=== PATIENT | male | born 1975 | race Hispanic/Latino ===

== ENCOUNTER → 2017-08-25 | Outpatient (CLI) | payer MEDICARE ==
[~2017-08-25] MED LIST: AMLO10TA2 PO; AMOX-429 PO; CARV12.511 PO; GLIP10TA9 PO; LOVA20TA3 PO; PIOG45TA17 PO
[2017-08-25 14:16] VITALS: BP 141/94
== END | disposition home or self-care (01) ==
LOC: WHH 10:00
PROVIDERS: ATTEND Podiatrist Foot & Ankle Surgery
DX: E11.621 Type 2 diabetes mellitus with foot ulcer (principal); L97.521 Non-pressure chronic ulcer of other part of left foot limited to breakdown of skin; E11.22 Type 2 diabetes mellitus with diabetic chronic kidney disease; I12.9 Hypertensive chronic kidney disease with stage 1 through stage 4 chronic kidney disease, or unspecified chronic kidney disease; N18.4 Chronic kidney disease, stage 4 (severe); E66.01 Morbid (severe) obesity due to excess calories; E11.69 Type 2 diabetes mellitus with other specified complication; M86.8X7 Other osteomyelitis, ankle and foot; E11.42 Type 2 diabetes mellitus with diabetic polyneuropathy; E11.21 Type 2 diabetes mellitus with diabetic nephropathy; E11.52 Type 2 diabetes mellitus with diabetic peripheral angiopathy with gangrene; Z79.4 Long term (current) use of insulin; Z99.2 Dependence on renal dialysis; Z89.511 Acquired absence of right leg below knee
CPT/HCPCS: 97597; A6196; A6207

== ENCOUNTER 2019-12-17 15:41 | Inpatient (IN) | payer MEDICARE ==
[~2019-12-17] VITALS: Ht 162.6 cm; Wt 114.3 kg
[~2019-12-17 15:41] MED LIST changes: +AMLO-258 PO; -AMLO10TA2 PO; -AMOX-429 PO; +FURO40TA5 PO; -PIOG45TA17 PO; +PIOG45TA64 PO
[2019-12-17] MEDS ORDERED: NEOMY SULF/BACITRA/POLYMYXIN B 1 EACH PACKET TP ONE (16:13)
[2019-12-17 16:18] LABS: BASOPHILS % (AUTO) 0.2 % (0.0-5.0); EOSINOPHILS % (AUTO) 2.1 % (0.0-8.0); HEMATOCRIT 25.7 % (42-54); MEAN CORPUSCULAR HEMOGLOBIN 29.2 pg (27.0-33.0); MEAN CORPUSCULAR HGB CONC 32.3 g/dL (32.0-36.0); MEAN CORPUSCULAR VOLUME 90.5 fL (79-99); MONOCYTES % (AUTO) 5.6 % (3.0-13.0); NEUTROPHILS % (AUTO) 84.5 % (40.0-77.0); PLATELET COUNT (AUTO) 330 K/uL (130-400); RED BLOOD CELL COUNT(AUTO) 2.84 MIL/uL (4.50-6.20); RED CELL DISTRIBUTION WIDTH 13.6 % (11.0-15.5); WHITE BLOOD COUNT (AUTO) 12.8 K/uL (4.8-10.8)
[2019-12-17 16:33] LABS: RAPID GROUP A STREP NEGATIVE (NEGATIVE)
[2019-12-17 16:36] LABS: ALANINE AMINOTRANSFERASE 18 U/L (12-78); ASPARTATE AMINOTRANSFERASE 17 U/L (10-37); BILIRUBIN,TOTAL 0.2 mg/dL (0.2-1.0); CHLORIDE 98 mmol/L (101-111); CREATINE KINASE, TOTAL 301 U/L (21-232); GLOMERULAR FILTR. RATE CALC 3 mL/min (>60); GLUCOSE,RANDOM 105 mg/dL (70-105); POTASSIUM 3.7 mmol/L (3.5-5.1); SODIUM SERUM 130 mmol/L (136-145); TOTAL PROTEIN, SERUM 7.9 g/dL (6.0-8.3)
[2019-12-17 16:44] LABS: CARBON DIOXIDE 7 mmol/L (21-32); CREATININE 16.3 mg/dL (0.5-1.5); UREA NITROGEN, BLOOD 142 mg/dL (7-18)
[2019-12-17 17:20] LABS: ABG BASE EXCESS -23.7 mmol/L (-2.0-3.0); ABG HCO3 5.5 mmol/L (21.0-28.0); ABG PCO2 21 mmHg (35-48)
[2019-12-17 19:12] LABS: ABG HCO3 5.2 mmol/L (21.0-28.0); ABG OXYGEN SATURATION 97.1 % (95.0-99.0); ABG PCO2 20 mmHg (35-48)
[2019-12-17] MEDS: Vitamin B Complex/Vit C/Folic Acid PO SCH (20:20)
[2019-12-17] MEDS ORDERED: GLUCAGON 1MG KIT 1 MG ML IM PRN (20:30)
[2019-12-17] MEDS: SODIUM BICARB 8.4% 50ML SYRING 150 MEQ in DEXTROSE 5%-WATER 1,000 ML IV SCH (20:30)
[2019-12-17] MEDS ORDERED: ACETAMINOPHEN 325 MG TAB PO PRN (20:30)
[2019-12-17] MEDS ORDERED: THIAMINE HCL 100 MG/ML 2ML VIAL ONE (20:50)
[2019-12-17 23:45] VITALS: BP 115/52
--- NOTE | 2019-12-17 23:53 | NUR ---
Admitted from ER. Awake, alert, and oriented. No c/o pain, sob. Oriented to room, call light, bed controls etc. D5W 1 liter/w 3 amps sodium bicarb infusing at 75 mls/hr into patent left wrist 20g IV. Initial assessment done. Call light and needed items placed readily at hand. Encouraged to call prn.
[2019-12-18] VITALS (36 sets, daily range): BP systolic 90–164; BP diastolic 38–76
[2019-12-18] MEDS ORDERED: METF-446 PO (02:34)
[2019-12-18] MEDS ORDERED: ZOLP10TA2 PO (02:34)
[2019-12-18] MEDS ORDERED: ONDA4TAB10 PO (02:34)
[2019-12-18] MEDS ORDERED: CHOL500051 PO (02:34)
[2019-12-18] MEDS ORDERED: LISI1TAB29 PO (02:34)
[2019-12-18] MEDS ORDERED: DEXTROSE 50%-WATER 25 GM/50 ML VIAL ONE (05:38)
[2019-12-18] MEDS: DEXTROSE 50%-WATER 50 ML DISP.SYRIN IV PRN ×2 (05:43→12:14)
[2019-12-18] MEDS: PANTOPRAZOLE SODIUM 40 MG TABLET.DR PO SCH (08:49)
[2019-12-18] MEDS: THIAMINE HCL 100 MG/ML 2ML VIAL IV SCH (08:49)
[2019-12-18] MEDS: Vitamin B Complex/Vit C/Folic Acid PO SCH (08:49)
[2019-12-18 09:34] LABS: HEMATOCRIT 24.3 % (42-54); MEAN CORPUSCULAR HEMOGLOBIN 28.6 pg (27.0-33.0); MEAN CORPUSCULAR HGB CONC 32.1 g/dL (32.0-36.0); PLATELET COUNT (AUTO) 319 K/uL (130-400); RED BLOOD CELL COUNT(AUTO) 2.73 MIL/uL (4.50-6.20); RED CELL DISTRIBUTION WIDTH 13.6 % (11.0-15.5)
[2019-12-18 10:03] LABS: EOSINOPHILS % (MANUAL) 1 % (1-6); LYMPHOCYTES % (MANUAL) 9 % (22-44); MAN.DIFF COMMENT-IMPRESSION MANUAL DIFFERENTIAL; MONOCYTES % (MANUAL) 5 % (2-9); PLATELET MORPHOLOGY COMMENT ADEQUATE; SEGMENTED NEUTROPHILS % 85 % (40-70)
[2019-12-18 10:10] LABS: INR 1.14 (0.85-1.15); PARTIAL THROMBOPLASTIN TIME 34.3 SEC (26.3-35.5); PROTHROMBIN TIME 12.2 SEC (9.6-11.6)
[2019-12-18 10:18] LABS: CHLORIDE 99 mmol/L (101-111); GLOMERULAR FILTR. RATE CALC 3 mL/min (>60); GLUCOSE,RANDOM 84 mg/dL (70-105); PHOSPHORUS 13.5 mg/dL (2.5-4.9); POTASSIUM 3.6 mmol/L (3.5-5.1); SODIUM SERUM 132 mmol/L (136-145)
[2019-12-18 10:24] LABS: CARBON DIOXIDE 7 mmol/L (21-32); CREATININE 16.6 mg/dL (0.5-1.5)
[2019-12-18 10:25] LABS: UREA NITROGEN, BLOOD 144 mg/dL (7-18)
[2019-12-18 10:48] LABS: ALBUMIN 2.8 g/dL (3.5-5.0); BILIRUBIN,DIRECT 0.1 mg/dL (0.0-0.3); BILIRUBIN,TOTAL 0.2 mg/dL (0.2-1.0); TOTAL PROTEIN, SERUM 7.2 g/dL (6.0-8.3)
[2019-12-18 10:51] LABS: HEMATOCRIT 22.7 % (42-54)
[2019-12-18 11:08] LABS: ALBUMIN 2.7 g/dL (3.5-5.0)
[2019-12-18 11:20] LABS: CREATININE 16.6 mg/dL (0.5-1.5)
[2019-12-18 11:21] LABS: % IRON SATURATION 129.4 % (30-44)
[2019-12-18] MEDS: SODIUM BICARB 8.4% 50ML SYRING 150 MEQ in DEXTROSE 5%-WATER 1,000 ML IV SCH (11:54)
--- NOTE | 2019-12-18 12:30 | NUR ---
taken to lab asst for permacath placement
--- NOTE | 2019-12-18 12:38 | NUR ---
DCP: HOME Sw spoke to pt's mother Meera Montelongo [phone]. Per mother, pt lives at home and is primary care care for son 4yrs old. Pt's mother is caring for grandson while pt is admitted. Pt on SSD, drives, has provider 3.5 hours a day thru [facility], no HH. Pt has cane and w/c, needs a glucometer. PCP is Dr Tran and pt uses [facility] for rx medications. Mother states pt is starting dialysis this admission and may need outpt HD set up. Mother states she wants pt to dc to her home, but pt does not like leaving his home unattended. CM to follow and assist as needed Addendum: 12/18/19 at 1244 by GRIFFIN CHRISTIANSON Amended: Links added.
[2019-12-18] MEDS ORDERED: MIDAZOLAM HCL 1 MG/ML 2ML VIAL ONE (13:26)
[2019-12-18] MEDS ORDERED: FENTANYL CITRATE PF 50 MCG/1 ML 2ML VIAL ONE (13:26)
[2019-12-18] MEDS ORDERED: LIDOCAINE HCL 1% MDV 50ML VIAL ONE (13:26)
--- NOTE | 2019-12-18 14:30 | NUR ---
RECEIVED PT FROM HAT MODEL. AWAKE, ORIENTED, VS STABLE
[2019-12-18] MEDS ORDERED: ONDANSETRON HCL 4 MG/2 ML VIAL ONE (18:57)
[2019-12-18] MEDS: ONDANSETRON HCL 4 MG/2 ML VIAL IVP PRN (19:07)
[2019-12-19] VITALS (29 sets, daily range): BP systolic 118–169; BP diastolic 47–85
[2019-12-19] MEDS: SODIUM BICARB 8.4% 50ML SYRING 150 MEQ in DEXTROSE 5%-WATER 1,000 ML IV SCH (02:11)
[2019-12-19 04:37] LABS: BASOPHILS % (AUTO) 0.3 % (0.0-5.0); EOSINOPHILS % (AUTO) 3.1 % (0.0-8.0); HEMATOCRIT 21.9 % (42-54); LYMPHOCYTES % (AUTO) 10.5 % (21.0-51.0); MEAN CORPUSCULAR HEMOGLOBIN 28.6 pg (27.0-33.0); MEAN CORPUSCULAR HGB CONC 32.9 g/dL (32.0-36.0); MEAN CORPUSCULAR VOLUME 86.9 fL (79-99); NEUTROPHILS % (AUTO) 77.6 % (40.0-77.0); PLATELET COUNT (AUTO) 287 K/uL (130-400); RED BLOOD CELL COUNT(AUTO) 2.52 MIL/uL (4.50-6.20); RED CELL DISTRIBUTION WIDTH 13.2 % (11.0-15.5); WHITE BLOOD COUNT (AUTO) 7.8 K/uL (4.8-10.8)
[2019-12-19 04:53] LABS: ALBUMIN 2.6 g/dL (3.5-5.0); BILIRUBIN,TOTAL 0.3 mg/dL (0.2-1.0); MAGNESIUM 2.3 mg/dL (1.80-2.40); TOTAL PROTEIN, SERUM 6.9 g/dL (6.0-8.3)
[2019-12-19 06:14] LABS: POTASSIUM 2.4 mmol/L (3.5-5.1)
[2019-12-19 06:15] LABS: CREATININE 12.2 mg/dL (0.5-1.5)
[2019-12-19 08:10] LABS: HEPATITIS Bs ANTIGEN SCREEN P Negative (Negative)
[2019-12-19] MEDS: THIAMINE HCL 100 MG/ML 2ML VIAL IV SCH (08:16)
[2019-12-19] MEDS: ONDANSETRON HCL 4 MG/2 ML VIAL IVP PRN ×2 (08:16→12:11)
[2019-12-19] MEDS: Vitamin B Complex/Vit C/Folic Acid PO SCH (08:16)
[2019-12-19] MEDS: PANTOPRAZOLE SODIUM 40 MG TABLET.DR PO SCH (08:16)
--- NOTE | 2019-12-19 09:45 | NUR ---
PT WITH SOME NAUSEA, FEELS BETTER AFTER ZOFRAN GIVEN. DIALYSIS NURSE HERE TO START DIALYSIS. K+ LEVEL CALLED IN TO DR RICKS
[2019-12-19] MEDS ORDERED: POTASSIUM CHLORIDE 20 MEQ ERTAB PO SCH (14:30)
[2019-12-19] MEDS: EPOETIN ALFA 10,000 UNIT/ML VIAL SQ SCH (14:55)
[2019-12-20] VITALS (17 sets, daily range): BP systolic 129–174; BP diastolic 52–89
[2019-12-20 03:47] LABS: BASOPHILS % (AUTO) 0.4 % (0.0-5.0); EOSINOPHILS % (AUTO) 2.9 % (0.0-8.0); HEMATOCRIT 23.6 % (42-54); LYMPHOCYTES % (AUTO) 15.8 % (21.0-51.0); MEAN CORPUSCULAR HEMOGLOBIN 28.9 pg (27.0-33.0); MEAN CORPUSCULAR HGB CONC 32.6 g/dL (32.0-36.0); MEAN CORPUSCULAR VOLUME 88.7 fL (79-99); MONOCYTES % (AUTO) 11.7 % (3.0-13.0); NEUTROPHILS % (AUTO) 68.8 % (40.0-77.0); PLATELET COUNT (AUTO) 279 K/uL (130-400); RED BLOOD CELL COUNT(AUTO) 2.66 MIL/uL (4.50-6.20); RED CELL DISTRIBUTION WIDTH 13.3 % (11.0-15.5); WHITE BLOOD COUNT (AUTO) 8.3 K/uL (4.8-10.8)
[2019-12-20 04:06] LABS: MAGNESIUM 1.6 mg/dL (1.80-2.40); PHOSPHORUS 6.6 mg/dL (2.5-4.9); POTASSIUM 3.1 mmol/L (3.5-5.1)
[2019-12-20] MEDS: Vitamin B Complex/Vit C/Folic Acid PO SCH (09:19)
[2019-12-20] MEDS: PANTOPRAZOLE SODIUM 40 MG TABLET.DR PO SCH (09:20)
[2019-12-20] MEDS: THIAMINE HCL 100 MG/ML 2ML VIAL IV SCH (09:20)
--- NOTE | 2019-12-20 10:15 | NUR ---
REPORT REPORT RECEIVED FROM KOMAL RAHMAN AT THIS TIME. PATIENT WILL BE TRANSFERRED TO DAY PATIENT RM 15 TO START DIALYSIS.
[2019-12-20] MEDS: ONDANSETRON HCL 4 MG/2 ML VIAL IVP PRN (10:46)
[2019-12-20] MEDS: EPOETIN ALFA 10,000 UNIT/ML VIAL SQ SCH (11:12)
--- NOTE | 2019-12-20 15:18 | NUR ---
DR. MILLICENT RICKS AT BEDSIDE TO ASSESS PATIENT. STATED MAG 1.6 WILL NOT BE CORRECTED. ORDERS FOR LISINOPRIL AND ATORVASTATIN TO BE STARTED. TRANSFER ORDER FOR MED/TELE GIVEN.
--- NOTE | 2019-12-20 16:58 | NUR ---
REPORT REPORT GIVEN TO MARCUS HOUSER RN AT [phone]. PATIENT WILL BE TRANSFERRED TO [facility].
--- NOTE | 2019-12-20 17:02 | NUR ---
DR. SARAVANAN COE AWARE OF NEW CONSULTATION. HE ORDERED FOR VEIN MAPPING, NPO AFTER MN, CONSENT FOR AV FISTULA PLACEMENT TOMORROW. ORDERS ENTERED INTO THE SYSTEM.
--- NOTE | 2019-12-20 18:00 | NUR ---
Recieved pt from ICU report obtained from JOSIAH Powell Pt AAox3, no distress, denies any needs nor discomfort. IV intact, no bleeding, consent for av fistula placement signed. Pt has no questions.
[2019-12-20] MEDS: ATORVASTATIN CALCIUM 20 MG TABLET PO SCH (19:56)
[2019-12-21] VITALS (24 sets, daily range): BP systolic 126–172; BP diastolic 63–90
[2019-12-21 04:31] LABS: HEMATOCRIT 24.4 % (42-54); MEAN CORPUSCULAR HEMOGLOBIN 28.6 pg (27.0-33.0); MEAN CORPUSCULAR VOLUME 89.4 fL (79-99); NUCLEATED RED BLOOD CELLS 0.2 % (0.0-0.19); PLATELET COUNT (AUTO) 257 K/uL (130-400); RED BLOOD CELL COUNT(AUTO) 2.73 MIL/uL (4.50-6.20); RED CELL DISTRIBUTION WIDTH 13.2 % (11.0-15.5); WHITE BLOOD COUNT (AUTO) 9.5 K/uL (4.8-10.8)
[2019-12-21 04:45] LABS: INR 1.16 (0.85-1.15); PARTIAL THROMBOPLASTIN TIME 29.6 SEC (26.3-35.5); PROTHROMBIN TIME 12.5 SEC (9.6-11.6)
[2019-12-21 04:56] LABS: CREATININE 6.9 mg/dL (0.5-1.5); MAGNESIUM 1.7 mg/dL (1.80-2.40); PHOSPHORUS 4.6 mg/dL (2.5-4.9); POTASSIUM 3.1 mmol/L (3.5-5.1)
[2019-12-21] MEDS: PANTOPRAZOLE SODIUM 40 MG TABLET.DR PO SCH (09:00)
[2019-12-21] MEDS: Vitamin B Complex/Vit C/Folic Acid PO SCH (09:00)
[2019-12-21] MEDS: LISINOPRIL 20 MG TABLET PO SCH (09:00)
[2019-12-21] MEDS: THIAMINE HCL 100 MG/ML 2ML VIAL IV SCH (09:15)
--- NOTE | 2019-12-21 11:04 | NUR ---
TO OR PATIENT TRANSPORTED TO OR VIA BED
[2019-12-21] MEDS ORDERED: SODIUM CHLORIDE 0.9% 1000ML 1,000 ML IV ONE (11:08)
--- NOTE | 2019-12-21 11:18 | NUR ---
[address] to surgery, I placed BPCI Letter on bedside table.
[2019-12-21] MEDS ORDERED: KETAMINE 50MG/ML SYRINGE 50 MG/ML DISP.SYRIN IV ONE ×2 (11:20→12:25)
[2019-12-21] MEDS ORDERED: CEFAZOLIN SODIUM 1 GM VIAL ONE (11:21)
[2019-12-21] MEDS ORDERED: ROCURONIUM 10MG/1ML SYR 10 MG/ML ML ONE (11:21)
[2019-12-21] MEDS ORDERED: LIDOCAINE PF 2% 5ML ABBOJECT ONE (11:21)
[2019-12-21] MEDS ORDERED: PROPOFOL 10 MG/ML 20ML VIAL IV ONE (11:21)
[2019-12-21] MEDS ORDERED: MIDAZOLAM HCL 1 MG/ML 2ML VIAL ONE (11:47)
[2019-12-21] MEDS ORDERED: FENTANYL CITRATE PF 50 MCG/1 ML 2ML VIAL ONE ×2 (11:48→12:17)
[2019-12-21] MEDS ORDERED: CEFAZOLIN SODIUM 1 GM VIAL IVP PRN (12:00)
[2019-12-21] MEDS ORDERED: GLYCOPYRROLATE 1 MG/5 ML SYRINGE ONE (12:16)
[2019-12-21] MEDS ORDERED: ONDANSETRON HCL 4 MG/2 ML VIAL ONE (12:16)
[2019-12-21] MEDS ORDERED: NEOSTIGMINE 5MG/5ML SYR IV ONE (12:17)
[2019-12-21] MEDS ORDERED: HEPARIN SODIUM 1000UNIT/ML 10ML VIAL ONE (12:27)
[2019-12-21] MEDS ORDERED: TRAMADOL HCL 50 MG TABLET PO PRN ×2 (12:30)
[2019-12-21] MEDS ORDERED: ACETAMINOPHEN 325 MG TAB PO PRN (12:30)
--- NOTE | 2019-12-21 14:30 | NUR ---
S/P FISTULA PLACEMENT RECEIVED REPORT AND PATIENT BACK IN ROOM S/P FISTULA PLACEMENT , SITE DRY AND INTACT, GOOD PULSE LEFT ARM, BLOOD PRESSURE 160/82 P 70 O2 SAT 93-95 ON ROOM AIR, BLOOD SUGAR 108 . ORDERS FOR CLEAR LIQUID DIET. DENIES PAIN AT THIS TIME WILL CONTINUE TO MONITOR.
--- NOTE | 2019-12-21 15:16 | NUR ---
CM NOTE/DAVITA REFERRAL NEW REFERRAL FOR OUTPATIENT DIALYSIS IN [facility] SIGNED PRIOR. CLINICAL PACKET FAXED AND CONFIRMED RECEIVED. PENDING EKG, WILL FAX WHEN AVAILABLE. PENDING DIALYSIS CHAIR DATE/TIME, WILL FOLLOW UP ACCORDINGLY.
--- NOTE | 2019-12-21 16:31 | NUR ---
CM NOTE/EKG FAXED MISSING EKG FOR DIALYSIS REFERRAL FAXED AND CONFIRMED RECEIVED AT [facility], PENDING CHAIR DATE/TIME.
[2019-12-21] MEDS: ONDANSETRON HCL 4 MG/2 ML VIAL IVP PRN (20:16)
[2019-12-21] MEDS: ATORVASTATIN CALCIUM 20 MG TABLET PO SCH (20:17)
[2019-12-21] MEDS ORDERED: DiphenhydrAMINE HCL 50 MG/ML VIAL IV SCH (20:45)
[2019-12-22 03:34] VITALS: BP 138/83
[2019-12-22 05:40] LABS: BASOPHILS % (AUTO) 0.5 % (0.0-5.0); EOSINOPHILS % (AUTO) 3.3 % (0.0-8.0); HEMATOCRIT 22.9 % (42-54); LYMPHOCYTES % (AUTO) 8.9 % (21.0-51.0); MEAN CORPUSCULAR HEMOGLOBIN 28.5 pg (27.0-33.0); NEUTROPHILS % (AUTO) 78.8 % (40.0-77.0); PLATELET COUNT (AUTO) 257 K/uL (130-400); RED BLOOD CELL COUNT(AUTO) 2.49 MIL/uL (4.50-6.20); RED CELL DISTRIBUTION WIDTH 13.2 % (11.0-15.5); WHITE BLOOD COUNT (AUTO) 16.9 K/uL (4.8-10.8)
[2019-12-22 05:58] LABS: ALBUMIN 2.5 g/dL (3.5-5.0); BILIRUBIN,TOTAL 0.2 mg/dL (0.2-1.0); TOTAL PROTEIN, SERUM 6.7 g/dL (6.0-8.3)
[2019-12-22 06:00] LABS: CREATININE 8.2 mg/dL (0.5-1.5)
--- NOTE | 2019-12-22 07:00 | NUR ---
AWARE OF CRITICAL RESULTS. NO NEW ORDERS AT THIS TIME. PATIENT MAY BE DIALYZED THIS AM. HD NURSE AWARE. PATIENT AWARE. WILL CONTINUE TO BE OBSERVED. CALL LIGHT WITHIN REACH. Addendum: 12/22/19 at 0803 by COLE REID RN RN Amended: Links added.
[2019-12-22 08:00] VITALS: BP 158/73
--- NOTE | 2019-12-22 10:40 | NUR ---
CM NOTE/LUCY PENDING PER SHEELA AT [facility] INTAKE, ADMISSION UNDER MEDICAL REVIEW BUT CHAIR DATE/TIME ANTICIPATED FOR TODAY, WILL CALL ME WITH INFORMATION. CM TO FOLLOW UP ACCORDINGLY.
[2019-12-22 12:00] VITALS: BP 152/55
[2019-12-22] MEDS ORDERED: LISI-613 PO (13:21)
[2019-12-22] MEDS ORDERED: Folic Acid/Vitamin B Comp W-C PO (13:21)
[2019-12-22] MEDS: PANTOPRAZOLE SODIUM 40 MG TABLET.DR PO SCH (14:51)
[2019-12-22] MEDS: Vitamin B Complex/Vit C/Folic Acid PO SCH (14:51)
[2019-12-22] MEDS: THIAMINE HCL 100 MG/ML 2ML VIAL IV SCH (14:51)
[2019-12-22] MEDS: LISINOPRIL 20 MG TABLET PO SCH (14:53)
--- NOTE | 2019-12-22 14:55 | NUR ---
MORNING MEDS: PER MD ORDERS ADMINISTERED MORNING MEDS. MORNING MEDS WERE GIVEN AT 0950, HELD LISINOPRIL UNTIL AFTER HIS DIALYSIS TREATMENT. RESPONDED TO ANOTHER ONE OF MY PTS CODE AND I DID NOT SAVE MY ADMINISTERED MEDICATIONS.
--- NOTE | 2019-12-22 15:05 | NUR ---
CM NOTE/LUCY CHAIR DATE/TIME LUCY ENNIS APPROVED DIALYSIS CHAIR. 1ST APPOINTMENT DATE ON 12/26/19 AT 2:30PM TTS SCHEDULE. PT VERBALIZED UNDERSTANDING. PRIMARY NURSE, KELLY RAHMAN, MADE AWARE OF LUCY APPT.
[2019-12-22 16:00] VITALS: BP 169/87
== END 2019-12-22 18:10 | disposition home or self-care (01) | DRG 673 ==
LOC: EDH 15:41 → EDHIP 19:16 → DAHIP 23:51 → 3BH 12-20 17:44
PROVIDERS: ADMIT Internal Medicine Nephrology; ATTEND Internal Medicine Nephrology
PROC: 0JH63XZ Insertion of Tunneled Vascular Access Device into Chest Subcutaneous Tissue and Fascia, Percutaneous Approach (ICD-10-PCS; 2019-12-18)
PROC: B5181ZA Fluoroscopy of Superior Vena Cava using Low Osmolar Contrast, Guidance (ICD-10-PCS; 2019-12-18)
PROC: 02HV33Z Insertion of Infusion Device into Superior Vena Cava, Percutaneous Approach (ICD-10-PCS; 2019-12-18)
PROC: B548ZZA Ultrasonography of Superior Vena Cava, Guidance (ICD-10-PCS; 2019-12-18)
PROC: 5A1D70Z Performance of Urinary Filtration, Intermittent, Less than 6 Hours Per Day (ICD-10-PCS; 2019-12-18)
PROC: 5A1D70Z Performance of Urinary Filtration, Intermittent, Less than 6 Hours Per Day (ICD-10-PCS; 2019-12-19)
PROC: 5A1D70Z Performance of Urinary Filtration, Intermittent, Less than 6 Hours Per Day (ICD-10-PCS; 2019-12-20)
PROC: 031C0ZF Bypass Left Radial Artery to Lower Arm Vein, Open Approach (ICD-10-PCS; principal; 2019-12-21 11:43)
PROC: 5A1D70Z Performance of Urinary Filtration, Intermittent, Less than 6 Hours Per Day (ICD-10-PCS; 2019-12-22)
DX: I12.0 Hypertensive chronic kidney disease with stage 5 chronic kidney disease or end stage renal disease (principal); G93.41 Metabolic encephalopathy; E87.2 Acidosis; Z68.41 Body mass index [BMI] 40.0-44.9, adult; N18.5 Chronic kidney disease, stage 5; E11.51 Type 2 diabetes mellitus with diabetic peripheral angiopathy without gangrene; D64.9 Anemia, unspecified; E11.649 Type 2 diabetes mellitus with hypoglycemia without coma; D72.829 Elevated white blood cell count, unspecified; E11.22 Type 2 diabetes mellitus with diabetic chronic kidney disease; E87.5 Hyperkalemia; E66.9 Obesity, unspecified; Z91.19 Patient's noncompliance with other medical treatment and regimen; Z89.611 Acquired absence of right leg above knee; Z83.3 Family history of diabetes mellitus
CPT/HCPCS: 36415; 36558; 36600; 71045; 76770; 77001; 80048; 80053; 80061; 80076; 82040; 82435; 82550; 82565; 82728; 82803; 82947; 82948; 83036; 83540; 83550; 83605; 83735; 84100; 84132; 84295; 84484; 84520; 85014; 85018; 85025; 85027; 85610; 85730; 86701; 86704; 86706; 86850; 86900; 86901; 87340; 87390; 87520; 87804; 87880; 90935; 93005; 93970; C1750; G0378; J0690; J0885; J1644; J2001; J2250; J2405; J2704; J2710; J3010; J3411; J3490; J7030; J7070

== ENCOUNTER 2020-07-06 09:55 | Inpatient (IN) | payer MEDICARE ==
[~2020-07-06] VITALS: Ht 162.6 cm; Wt 108.9 kg
[~2020-07-06 09:55] MED LIST changes: -AMLO-258 PO; +CHOL500051 PO; -FURO40TA5 PO; +Folic Acid/Vitamin B Comp W-C PO; -GLIP10TA9 PO; +LISI-613 PO; +ONDA4TAB10 PO; -PIOG45TA64 PO
[2020-07-06] MEDS ORDERED: ONDANSETRON HCL 4 MG/2 ML VIAL ONE (10:55)
[2020-07-06] MEDS ORDERED: SODIUM CHLORIDE 0.9% 100 ML IV ONE (10:55)
[2020-07-06 10:58] LABS: BASOPHILS % (AUTO) 0.3 % (0.0-5.0); EOSINOPHILS % (AUTO) 1.1 % (0.0-8.0); LYMPHOCYTES % (AUTO) 6.7 % (21.0-51.0); MEAN CORPUSCULAR HEMOGLOBIN 29.7 pg (27.0-33.0); MEAN CORPUSCULAR HGB CONC 32.9 g/dL (32.0-36.0); MEAN CORPUSCULAR VOLUME 90.2 fL (79-99); MONOCYTES % (AUTO) 8.9 % (3.0-13.0); NEUTROPHILS % (AUTO) 82.5 % (40.0-77.0); PLATELET COUNT (AUTO) 220 K/uL (130-400); RED BLOOD CELL COUNT(AUTO) 3.77 MIL/uL (4.50-6.20); RED CELL DISTRIBUTION WIDTH 13.1 % (11.0-15.5); WHITE BLOOD COUNT (AUTO) 10.6 K/uL (4.8-10.8)
[2020-07-06 11:20] LABS: ALBUMIN 2.6 g/dL (3.5-5.0); BILIRUBIN,TOTAL 0.4 mg/dL (0.2-1.0); POTASSIUM 5.3 mmol/L (3.5-5.1); TOTAL PROTEIN, SERUM 8.2 g/dL (6.0-8.3)
[2020-07-06 11:52] LABS: CREATININE 9.7 mg/dL (0.5-1.5)
[2020-07-06] MEDS ORDERED: CEFTRIAXONE SODIUM 1 GM ONE (12:23)
[2020-07-06] MEDS ORDERED: DEXAMETHASONE SOD PHOSPHATE 4 MG/ML 5ML VIAL ONE (12:23)
[2020-07-06] MEDS ORDERED: ALBUTEROL INHALER 90MCG/INH IH ONE (12:23)
[2020-07-06] MEDS ORDERED: AZITHROMYCIN 250 MG TABLET PO ONE (12:24)
[2020-07-06] MEDS ORDERED: SODIUM CHLORIDE 0.9% 50 ML IV ONE (12:24)
[2020-07-06] MEDS ORDERED: ACETAMINOPHEN-CODEINE 300/30MG TAB ONE (12:48)
[2020-07-06 12:54] LABS: APPEARANCE,URINE Cloudy (CLEAR); BILIRUBIN,URINE Negative (NEGATIVE); COLOR,URINE Yellow (YELLOW); GLUCOSE, URINE (UA) 500 mg/dL (NEGATIVE); KETONES,URINE Negative (NEGATIVE); LEUKOCYTE ESTERASE ,URINE Small (NEGATIVE); NITRATE,URINE Negative (NEGATIVE); OCCULT BLOOD,URINE Large (NEGATIVE); PH,URINE 6.5 (5.0-8.0); PROTEIN,URINE >=1000 mg/dL (NEGATIVE); UROBILINOGEN,URINE 0.2 mg/dL (0.2-1.0)
[2020-07-06 13:16] LABS: BACTERIA,URINE Moderate /HPF (None Seen); WBC,URINE 26-50 /HPF (0-1)
[2020-07-06] MEDS ORDERED: ONDANSETRON HCL 4 MG/2 ML VIAL IVP PRN (13:45)
[2020-07-06] MEDS ORDERED: VANCOMYCIN PROTOCOL PER PHARMACY IV SCH (13:45)
[2020-07-06] MEDS ORDERED: DEXTROSE 50%-WATER 50 ML DISP.SYRIN IV PRN (13:45)
[2020-07-06] MEDS ORDERED: GLUCAGON 1MG KIT 1 MG ML IM PRN (13:45)
[2020-07-06] MEDS ORDERED: ZOSYN 3.375GM+NS 50ML 50 ML IV ONE (13:58)
[2020-07-06] MEDS ORDERED: VANCOMYCIN 2 GM in SODIUM CHLORIDE 0.9% 500ML 500 ML IV ONE ×2 (14:45→20:45)
[2020-07-06] MEDS ORDERED: HEPARIN SODIUM 5000UNIT/ML 1ML VIAL ONE (16:48)
[2020-07-06 20:33] VITALS: BP 123/64
[2020-07-06] MEDS ORDERED: ZOSYN 3.375GM+NS 50ML 50 ML IV SCH (21:00)
[2020-07-06] MEDS: INSULIN R PO SS1 SQ SCH (21:50)
[2020-07-07] VITALS (8 sets, daily range): BP systolic 97–153; BP diastolic 42–88
[2020-07-07] MEDS: ZOSYN 3.375GM+NS 50ML 50 ML IV SCH ×2 (04:54→17:03)
[2020-07-07] MEDS: PANTOPRAZOLE SODIUM 40 MG TABLET.DR PO SCH (06:41)
[2020-07-07] MEDS: INSULIN R PO SS1 SQ SCH ×4 (06:44→21:24)
--- NOTE | 2020-07-07 14:15 | NUR ---
Dr Cross in house for daily rounds w/ pt. Dr Cross ordered to have dialysis catheter removed by IR, doctor to doctor phone call done with Dr Haddad (of IR) to request procedure for today. Per Dr. Cross, Dr. Haddad will do at bedside today.
--- NOTE | 2020-07-07 17:51 | NUR ---
Dialysis catheter still in place, called Dr. Haddad to confirm he will remove tonight. He stated yes he did speak with with Dr. Cross, but most likely would not be able to remove catheter until early am. Endorsed to primary nurse, removal supplies at bedside.
--- NOTE | 2020-07-07 18:13 | NUR ---
D/C PLAN CM spoke to patient regarding d/c planning. Patient lives with his son. States he has a provider 3.5 hours/day. Attend HD at [facility]. States he drives self to treatments and appointments. Has a w/c. Denies having home health. Plan to home. No needs verbalized or identified. CM to follow up. Addendum: 07/07/20 at 1820 by SAMEER SANTOS CM Amended: Links added.
[2020-07-08 04:16] VITALS: BP 110/69
[2020-07-08] MEDS: PANTOPRAZOLE SODIUM 40 MG TABLET.DR PO SCH (04:45)
[2020-07-08] MEDS: ZOSYN 3.375GM+NS 50ML 50 ML IV SCH ×2 (04:45→16:21)
[2020-07-08 06:10] LABS: BASOPHILS % (AUTO) 0.2 % (0.0-5.0); EOSINOPHILS % (AUTO) 0.7 % (0.0-8.0); HEMATOCRIT 30.8 % (42-54); LYMPHOCYTES % (AUTO) 10.7 % (21.0-51.0); MEAN CORPUSCULAR HGB CONC 33.1 g/dL (32.0-36.0); MEAN CORPUSCULAR VOLUME 90.6 fL (79-99); MONOCYTES % (AUTO) 8.6 % (3.0-13.0); NEUTROPHILS % (AUTO) 79.2 % (40.0-77.0); PLATELET COUNT (AUTO) 232 K/uL (130-400); WHITE BLOOD COUNT (AUTO) 12.6 K/uL (4.8-10.8)
[2020-07-08 06:40] LABS: PHOSPHORUS 9.6 mg/dL (2.5-4.9); POTASSIUM 4.2 mmol/L (3.5-5.1)
[2020-07-08 06:50] LABS: CREATININE 9.5 mg/dL (0.5-1.5)
[2020-07-08] MEDS: INSULIN R PO SS1 SQ SCH ×4 (07:30→22:01)
[2020-07-08 08:46] VITALS: BP 107/61
[2020-07-08] MEDS ORDERED: LIDOCAINE HCL 1% MDV 50ML VIAL ONE (10:32)
--- NOTE | 2020-07-08 10:45 | NUR ---
AFTER SCHOOL COORDINATOR CAME TO REMOVE PERMCATH REMOVAL AT BEDSIDE
[2020-07-08 11:07] LABS: INR 1.07 (0.85-1.15); PARTIAL THROMBOPLASTIN TIME 25.7 SEC (26.3-35.5); PROTHROMBIN TIME 11.5 SEC (9.6-11.6)
--- NOTE | 2020-07-08 11:08 | NUR ---
RT PERMACATH REMOVAL - RIGHT CHEST AREA/ PERMACATH PREPPED FOR REMOVAL PERFORMED BY DR BRANDT. SEE MD DICTATION. TIMEOUT PERFORMED PRIOR TO START OF PROCEDURE. CATHETER REMOVED INTACT AND CATHETER TIP SENT FOR CULTURE. MANUAL PRESSURE APPLIED TO PUNCTURE SITE. NO BLEEDING OR HEMATOMA NOTED, DRESSING APPLIED. HOB ELEVATED >30 DEGREES. PATIENT TOLERATED WELL. REPORT GIVEN TO PRIMARY NURSE.
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
--- NOTE | 2020-07-08 13:00 | NUR ---
MILLICENT RICKS CAME TO SEE PT AT BEDSIDE, WILL DECIDE WHAT TO DO TOMORROW REGARDING DIALYSIS
[2020-07-08 13:27] VITALS: BP 106/60
[2020-07-08] MEDS: ACETAMINOPHEN 325 MG TAB PO PRN (16:46)
[2020-07-08] MEDS ORDERED: VANCOMYCIN 1GM+NS 250ML 250 ML IV SCH (17:00)
--- NOTE | 2020-07-08 17:30 | NUR ---
PHARMACY VANCO TROUGH IS 26.6 WILL CANCEL VANCO TO DAY. PER KENYETTA IN PHARMACY CALL WHEN PATIENT HAS ACCESS FOR DIALYSIS TO RESTART VANCO.
[2020-07-08 17:48] VITALS: BP 148/81
[2020-07-08 20:00] VITALS: BP 127/68
[2020-07-09] VITALS (8 sets, daily range): BP systolic 108–135; BP diastolic 20–81
[2020-07-09] MEDS: ACETAMINOPHEN 325 MG TAB PO PRN ×2 (02:10→11:48)
[2020-07-09] MEDS: ZOSYN 3.375GM+NS 50ML 50 ML IV SCH ×2 (05:02→17:48)
[2020-07-09 05:31] LABS: HEMATOCRIT 29.7 % (42-54); MEAN CORPUSCULAR HGB CONC 33.3 g/dL (32.0-36.0); RED BLOOD CELL COUNT(AUTO) 3.3 MIL/uL (4.50-6.20); RED CELL DISTRIBUTION WIDTH 13.1 % (11.0-15.5); WHITE BLOOD COUNT (AUTO) 11.7 K/uL (4.8-10.8)
[2020-07-09 05:47] LABS: MAGNESIUM 2.3 mg/dL (1.80-2.40); POTASSIUM 4.6 mmol/L (3.5-5.1)
[2020-07-09 05:48] LABS: INR 1.08 (0.85-1.15); PARTIAL THROMBOPLASTIN TIME 27.2 SEC (26.3-35.5); PROTHROMBIN TIME 11.6 SEC (9.6-11.6)
[2020-07-09 05:50] LABS: CREATININE 11.2 mg/dL (0.5-1.5)
[2020-07-09] MEDS: PANTOPRAZOLE SODIUM 40 MG TABLET.DR PO SCH (06:47)
[2020-07-09] MEDS: INSULIN R PO SS1 SQ SCH ×4 (06:51→20:04)
--- NOTE | 2020-07-09 11:50 | NUR ---
LAB POSITIVE PCR FOR COVID
--- NOTE | 2020-07-09 13:30 | NUR ---
TSR SPOKE JESSE SOTO RN, PT IS AAOX4 VS STABLE NO COMPLICATIONS UPON TSF RM [phone]
--- NOTE | 2020-07-09 13:34 | NUR ---
DIALYSIS SPOKE WITH SADE PALACIOS AND IS AWARE PT NEEDS HD AND IS BEING MOVED FROM 327 TO 203
--- NOTE | 2020-07-09 13:50 | NUR ---
FLOOR TRANSFER Pt arrived to 203. Received report from Maura RAHMAN. Pt aaox4, airway patent breathing even and unlabored on room air. NAD. Awaiting HD. VS wnl.
--- NOTE | 2020-07-09 16:54 | NUR ---
DIALYSIS KATHERYN DIALYSIS NURSE BY BEDSIDE. ATTEMPTED TO ACCESS LEFT ARM FISTULA. REPORTS FISTULA NOT ABLE TO BE ACCESSED, ATTEMPT UNSUCCESSFUL DUE TO IMMATURITY. ORDERS FOR TEMPORARY JT ENTERED. SHARIF GUZMAN RN NOTIFIED. ORDER FAXED TO OUTPATIENT DIETITIAN [facility] #[id number] FOR SCHEDULING. CONSENT FORM SIGNED. PT INFORMED PLAN OF CARE
[2020-07-09] MEDS: TRAMADOL HCL 50 MG TABLET PO PRN (19:34)
[2020-07-09] MEDS ORDERED: CEFAZOLIN SODIUM 1 GM VIAL ONE (20:40)
[2020-07-10 03:55] VITALS: BP 127/65
[2020-07-10 05:07] LABS: BASOPHILS % (AUTO) 0.4 % (0.0-5.0); EOSINOPHILS % (AUTO) 3.1 % (0.0-8.0); HEMATOCRIT 29.2 % (42-54); LYMPHOCYTES % (AUTO) 17.1 % (21.0-51.0); MEAN CORPUSCULAR HEMOGLOBIN 29.6 pg (27.0-33.0); MEAN CORPUSCULAR HGB CONC 32.5 g/dL (32.0-36.0); MONOCYTES % (AUTO) 11.1 % (3.0-13.0); NEUTROPHILS % (AUTO) 67.6 % (40.0-77.0); PLATELET COUNT (AUTO) 255 K/uL (130-400); RED BLOOD CELL COUNT(AUTO) 3.21 MIL/uL (4.50-6.20); RED CELL DISTRIBUTION WIDTH 13.1 % (11.0-15.5); WHITE BLOOD COUNT (AUTO) 13.1 K/uL (4.8-10.8)
[2020-07-10 05:30] LABS: ALBUMIN 2.1 g/dL (3.5-5.0); BILIRUBIN,TOTAL 0.4 mg/dL (0.2-1.0); POTASSIUM 4.6 mmol/L (3.5-5.1); TOTAL PROTEIN, SERUM 7.2 g/dL (6.0-8.3)
[2020-07-10 05:45] LABS: CREATININE 12.7 mg/dL (0.5-1.5)
[2020-07-10] MEDS: PANTOPRAZOLE SODIUM 40 MG TABLET.DR PO SCH (06:05)
[2020-07-10] MEDS: INSULIN R PO SS1 SQ SCH ×4 (06:05→20:06)
[2020-07-10 08:00] VITALS: BP 124/65
[2020-07-10] MEDS ORDERED: CEFAZOLIN SODIUM 1 GM VIAL IVP SCH ×2 (09:00→21:00)
[2020-07-10 11:32] VITALS: BP 123/72
[2020-07-10] MEDS ORDERED: LIDOCAINE HCL 1% MDV 50ML VIAL ONE (12:51)
--- NOTE | 2020-07-10 13:14 | NUR ---
Pt OFF FLOOR FOR JT CATH PROCEDURE. NAD. VSS. NO COMPLAINTS AT THIS TIME. REMAINED NPO SINCE MIDNIGHT
[2020-07-10] MEDS ORDERED: IOHEXOL-350 50ML VIAL IV ONE (13:42)
--- NOTE | 2020-07-10 14:31 | NUR ---
PT ARRIVED BACK TO FLOOR VS STABLE . AAOX4, AIRWAY PATENT BREATHING EVEN AND UNLABORED. DR RICKS BY BEDSIDE. ORDERS RECEIVED
[2020-07-10 14:32] VITALS: BP 139/79
[2020-07-10] MEDS ORDERED: VANCOMYCIN 1GM+NS 250ML 250 ML IV SCH (15:00)
[2020-07-10] MEDS: ACETAMINOPHEN 325 MG TAB PO PRN (15:05)
[2020-07-10] MEDS ORDERED: HEPARIN SODIUM 5000UNIT/ML 1ML VIAL ONE (17:38)
--- NOTE | 2020-07-10 17:44 | NUR ---
HEPARIN GIVEN BY DIALYSIS NURSE MARYLIN FOR CATHETER
[2020-07-10] MEDS ORDERED: HEPARIN SODIUM 5000UNIT/ML 1ML VIAL SQ PRN (17:45)
[2020-07-10] MEDS ORDERED: 0.9% SODIUM CHLORIDE 1000 ML IV BAG IV PRN (18:00)
[2020-07-10] MEDS ORDERED: ACETAMINOPHEN 325 MG TAB PO PRN (18:00)
[2020-07-10] MEDS ORDERED: SODIUM CHLORIDE 0.9% 1000ML 1,000 ML IV PRN (18:00)
[2020-07-10] MEDS ORDERED: HEPARIN SODIUM 5000UNIT/ML 1ML VIAL IJ PRN (18:00)
[2020-07-10 20:09] VITALS: BP 119/69
[2020-07-11] VITALS (7 sets, daily range): BP systolic 117–140; BP diastolic 63–82
[2020-07-11] MEDS: ACETAMINOPHEN 325 MG TAB PO PRN (03:31)
[2020-07-11 04:38] LABS: BASOPHILS % (AUTO) 0.4 % (0.0-5.0); EOSINOPHILS % (AUTO) 3.4 % (0.0-8.0); HEMATOCRIT 30.9 % (42-54); LYMPHOCYTES % (AUTO) 14.2 % (21.0-51.0); MEAN CORPUSCULAR HEMOGLOBIN 29.1 pg (27.0-33.0); MEAN CORPUSCULAR HGB CONC 32.4 g/dL (32.0-36.0); MEAN CORPUSCULAR VOLUME 89.8 fL (79-99); MONOCYTES % (AUTO) 10.3 % (3.0-13.0); NEUTROPHILS % (AUTO) 70.9 % (40.0-77.0); PLATELET COUNT (AUTO) 341 K/uL (130-400); RED BLOOD CELL COUNT(AUTO) 3.44 MIL/uL (4.50-6.20); RED CELL DISTRIBUTION WIDTH 13.1 % (11.0-15.5); WHITE BLOOD COUNT (AUTO) 10.9 K/uL (4.8-10.8)
[2020-07-11] MEDS: INSULIN R PO SS1 SQ SCH ×4 (05:18→20:31)
[2020-07-11] MEDS: PANTOPRAZOLE SODIUM 40 MG TABLET.DR PO SCH (05:18)
[2020-07-11 05:22] LABS: POTASSIUM 3.7 mmol/L (3.5-5.1)
--- NOTE | 2020-07-11 11:42 | NUR ---
DC PLAN VISITED WITH PATIENT. LET PATIENT KNOW THAT DUE TO COVID HE WILL HAVE TO GO TO [facility] AT 10 AM FOR TREATMENT ON WEDNESDAY. PATIENT VERBALIZED UNDERSTANDING. LET NURSE KNOW OF CHANGE IN COVID CLINIC LEFT ORANGE PAPER AND PATIENT PAPER WITH DIALYSIS INFO FLAGGED IN CHART. Addendum: 07/11/20 at 1145 by JARED CONNOLLY RN CM Amended: Links added.
[2020-07-11] MEDS: TRAMADOL HCL 50 MG TABLET PO PRN (13:13)
[2020-07-11] MEDS ORDERED: CEFAZOLIN SODIUM 1 GM VIAL ONE (19:47)
[2020-07-11] MEDS ORDERED: SERTRALINE HCL 50 MG TABLET ONE (19:48)
[2020-07-11] MEDS: CEFAZOLIN SODIUM 1 GM VIAL IVP SCH ×2 (20:31→20:39)
[2020-07-12] VITALS (8 sets, daily range): BP systolic 136–170; BP diastolic 71–84
[2020-07-12 04:35] LABS: BASOPHILS % (AUTO) 0.4 % (0.0-5.0); EOSINOPHILS % (AUTO) 2.9 % (0.0-8.0); HEMATOCRIT 31.6 % (42-54); LYMPHOCYTES % (AUTO) 11.1 % (21.0-51.0); MEAN CORPUSCULAR HEMOGLOBIN 28.9 pg (27.0-33.0); MEAN CORPUSCULAR VOLUME 93.2 fL (79-99); MONOCYTES % (AUTO) 10.8 % (3.0-13.0); NEUTROPHILS % (AUTO) 74.1 % (40.0-77.0); PLATELET COUNT (AUTO) 410 K/uL (130-400); RED BLOOD CELL COUNT(AUTO) 3.39 MIL/uL (4.50-6.20); RED CELL DISTRIBUTION WIDTH 13.3 % (11.0-15.5); WHITE BLOOD COUNT (AUTO) 11.4 K/uL (4.8-10.8)
[2020-07-12 04:58] LABS: POTASSIUM 3.8 mmol/L (3.5-5.1)
[2020-07-12 05:09] LABS: CREATININE 8.1 mg/dL (0.5-1.5)
[2020-07-12] MEDS: INSULIN R PO SS1 SQ SCH ×4 (06:11→21:00)
[2020-07-12] MEDS: PANTOPRAZOLE SODIUM 40 MG TABLET.DR PO SCH (06:12)
[2020-07-12 07:15] LABS: HEPATITIS A ANTIBODY IGM Negative (Negative); HEPATITIS B CORE IGM Negative (Negative); HEPATITIS Bs ANTIGEN SCREEN P Negative (Negative)
[2020-07-12] MEDS: SERTRALINE HCL 50 MG TABLET PO SCH (09:00)
[2020-07-12] MEDS: ACETAMINOPHEN 325 MG TAB PO PRN (15:50)
--- NOTE | 2020-07-12 16:12 | NUR ---
ECHO BY BEDSIDE
[2020-07-12] MEDS: CEFAZOLIN SODIUM 1 GM VIAL IVP SCH (22:47)
[2020-07-13 03:00] VITALS: BP 139/65
[2020-07-13 05:18] LABS: BASOPHILS % (AUTO) 0.4 % (0.0-5.0); EOSINOPHILS % (AUTO) 5.6 % (0.0-8.0); HEMATOCRIT 30.5 % (42-54); MEAN CORPUSCULAR HEMOGLOBIN 29.1 pg (27.0-33.0); MEAN CORPUSCULAR HGB CONC 31.8 g/dL (32.0-36.0); MEAN CORPUSCULAR VOLUME 91.6 fL (79-99); MONOCYTES % (AUTO) 11.2 % (3.0-13.0); NEUTROPHILS % (AUTO) 65.1 % (40.0-77.0); PLATELET COUNT (AUTO) 464 K/uL (130-400); RED BLOOD CELL COUNT(AUTO) 3.33 MIL/uL (4.50-6.20); RED CELL DISTRIBUTION WIDTH 12.9 % (11.0-15.5); WHITE BLOOD COUNT (AUTO) 9.1 K/uL (4.8-10.8)
[2020-07-13 05:32] LABS: POTASSIUM 3.7 mmol/L (3.5-5.1)
[2020-07-13 05:46] LABS: CREATININE 10.1 mg/dL (0.5-1.5)
[2020-07-13] MEDS: PANTOPRAZOLE SODIUM 40 MG TABLET.DR PO SCH (06:57)
[2020-07-13] MEDS: INSULIN R PO SS1 SQ SCH ×4 (07:23→21:00)
[2020-07-13 08:00] VITALS: BP 144/86
[2020-07-13] MEDS: SERTRALINE HCL 50 MG TABLET PO SCH (08:19)
--- NOTE | 2020-07-13 08:35 | NUR ---
Consult Dialysis Nurse Mahnaz by bedside at this time Pt verbalizing concerns "When are they going to do the permacath. If they don't put it today I'm going to leave" Dr Wagoner paged. Awaiting call back.
--- NOTE | 2020-07-13 10:31 | NUR ---
VASCULAR SURGERY Dr Wagoner by bedside for permacath placement consult. Pt threatening to leave AMA if placement not done. Per MD he will check the scheduling and see if pt can be done tomorrow or Wednesday and let this nurse know. Pt made aware plan of care.
--- NOTE | 2020-07-13 10:53 | NUR ---
[place] [address]/14/20. Awaiting orders Addendum: 07/13/20 at 1055 by AMANDA GAMA RN RN Per Dr Wagoner
--- NOTE | 2020-07-13 11:28 | NUR ---
Dialysis Tolerated 2 hours of dialysis. 2.5L removed per Mahnaz Dialysis nurse
[2020-07-13 12:00] VITALS: BP 123/73
[2020-07-13] MEDS: ALPRAZOLAM 0.25 MG TABLET PO PRN ×2 (13:58→21:09)
[2020-07-13 16:00] VITALS: BP 125/83
[2020-07-13 19:00] VITALS: BP 114/60
[2020-07-13] MEDS ORDERED: DIPHENHYDRAMINE HCL 25 MG CAPSULE PO PRN (20:45)
[2020-07-13] MEDS: CEFAZOLIN SODIUM 1 GM VIAL IVP SCH (21:09)
[2020-07-13] MEDS: TRAMADOL HCL 50 MG TABLET PO PRN (21:10)
[2020-07-13 23:00] VITALS: BP 117/64
[2020-07-14] VITALS (12 sets, daily range): BP systolic 131–159; BP diastolic 68–82
[2020-07-14 05:03] LABS: BASOPHILS % (AUTO) 0.5 % (0.0-5.0); HEMATOCRIT 31.7 % (42-54); LYMPHOCYTES % (AUTO) 22.8 % (21.0-51.0); MEAN CORPUSCULAR HEMOGLOBIN 29.6 pg (27.0-33.0); MEAN CORPUSCULAR HGB CONC 31.9 g/dL (32.0-36.0); MONOCYTES % (AUTO) 10.6 % (3.0-13.0); NEUTROPHILS % (AUTO) 60.2 % (40.0-77.0); PLATELET COUNT (AUTO) 481 K/uL (130-400); RED BLOOD CELL COUNT(AUTO) 3.41 MIL/uL (4.50-6.20); RED CELL DISTRIBUTION WIDTH 13.1 % (11.0-15.5); WHITE BLOOD COUNT (AUTO) 10.2 K/uL (4.8-10.8)
[2020-07-14 05:22] LABS: POTASSIUM 3.8 mmol/L (3.5-5.1)
[2020-07-14] MEDS: INSULIN R PO SS1 SQ SCH ×2 (06:07→11:27)
[2020-07-14] MEDS: PANTOPRAZOLE SODIUM 40 MG TABLET.DR PO SCH (06:07)
[2020-07-14] MEDS ORDERED: LIDOCAINE PF 2% 5ML ABBOJECT ONE (07:18)
[2020-07-14] MEDS ORDERED: SUCCINYLCHOLINE CHLORIDE 20 MG/ML 10 ML VIAL ONE (07:18)
[2020-07-14] MEDS ORDERED: ONDANSETRON HCL 4 MG/2 ML VIAL ONE (07:18)
[2020-07-14] MEDS ORDERED: DEXAMETHASONE SOD PHOSPHATE 10MG/ML 1ML VIAL ONE (07:18)
[2020-07-14] MEDS ORDERED: GLYCOPYRROLATE 1 MG/5 ML SYRINGE ONE (07:19)
[2020-07-14] MEDS ORDERED: NEOSTIGMINE 5MG/5ML SYR IV ONE (07:19)
[2020-07-14] MEDS ORDERED: PROPOFOL 10 MG/ML 20ML VIAL IV ONE (07:19)
[2020-07-14] MEDS ORDERED: MIDAZOLAM HCL 1 MG/ML 2ML VIAL ONE (07:20)
[2020-07-14] MEDS ORDERED: ROCURONIUM 10MG/1ML SYR 10 MG/ML ML ONE (07:20)
[2020-07-14] MEDS ORDERED: FENTANYL CITRATE PF 50 MCG/1 ML 2ML VIAL ONE ×2 (07:23→07:37)
[2020-07-14] MEDS ORDERED: HEPARIN SODIUM 1000UNIT/ML 10ML VIAL ONE (07:28)
[2020-07-14] MEDS ORDERED: LIDOCAINE HCL 1% 20 ML VIAL ONE (07:28)
--- NOTE | 2020-07-14 08:08 | NUR ---
Pt off floor Report given to JOSIAH Watt. All questions answered and addressed. VS stable. NAD. Pt off floor for Permacath placement
[2020-07-14] MEDS: SERTRALINE HCL 50 MG TABLET PO SCH (08:13)
[2020-07-14] MEDS ORDERED: ACETAMINOPHEN 325 MG TAB PO PRN (09:00)
--- NOTE | 2020-07-14 10:22 | NUR ---
Returned to 203 Pt arrived to floor at 0940. Report received from Kam RN. Per report pt tolerated placement of Right IJ Permacath. Pt remained awake during procedure. Versed and Heparin given during procedure per report. Pt aaox4, VS stable. Airway patent breathing even and unlabored. No complaints at this time. Site clean dry and intact with Clear Tegaderm Dressing. Dr Zamora reports pt is clear for discharge 1015: Mild Bleeding noted to site. Pt denies pain. Bleeding controlled. Dressing changed per protocol. No further bleeding noted. Dr Zamora paged for notification. Awaiting call back.
--- NOTE | 2020-07-14 10:41 | NUR ---
Received call back From Dr Zamora. Informed of pt status and bleeding around permacath site. Orders to sit pt up for approx 1 hour and hold pressure above site by pts neck for 10 mins. Orders rendered. Informed pt plan of care. Will continue to monitor
[2020-07-14] MEDS ORDERED: CEFA1VIA11 IVP (13:43)
[2020-07-14] MEDS ORDERED: SERT50TA PO (13:43)
[2020-07-14] MEDS ORDERED: CEFAZOLIN SODIUM 1 GM VIAL IVP SCH (13:45)
--- NOTE | 2020-07-14 16:09 | NUR ---
Pt clear for discharge by Dr Cross. No further bleeding noted to permacath site. No complaints at this time. AAOx4, airway patent breathing even and unlabored. NAD. VS wnl. Pt verbalized understanding of follow up care, quarantine information and med teaching.
--- NOTE | 2020-07-15 08:59 | NUR ---
DC PLAN PATIENT DID NOT DC ON WEDNESDAY. MAGNUSG VIKRAM. DC ON WEDNESDAY. SENT INFO TO LUCY AT [facility] WITH UPDATES 07/15. Addendum: 07/15/20 at 0901 by JARED CONNOLLY RN CM Amended: Links added.
== END 2020-07-14 15:50 | disposition home or self-care (01) | DRG 314 ==
LOC: EDH 09:55 → EDHIP 13:23 → 3DH 21:13 → 2AH 07-09 13:49
PROVIDERS: ADMIT Internal Medicine Nephrology; ATTEND Internal Medicine Nephrology
PROC: 5A1D70Z Performance of Urinary Filtration, Intermittent, Less than 6 Hours Per Day (ICD-10-PCS; 2020-07-06)
PROC: 0JPT3XZ Removal of Tunneled Vascular Access Device from Trunk Subcutaneous Tissue and Fascia, Percutaneous Approach (ICD-10-PCS; principal; 2020-07-08)
PROC: 02PYX3Z Removal of Infusion Device from Great Vessel, External Approach (ICD-10-PCS; 2020-07-08)
PROC: 02HV33Z Insertion of Infusion Device into Superior Vena Cava, Percutaneous Approach (ICD-10-PCS; 2020-07-10)
PROC: B548ZZA Ultrasonography of Superior Vena Cava, Guidance (ICD-10-PCS; 2020-07-10)
PROC: B5131ZA Fluoroscopy of Right Jugular Veins using Low Osmolar Contrast, Guidance (ICD-10-PCS; 2020-07-10)
PROC: 5A1D70Z Performance of Urinary Filtration, Intermittent, Less than 6 Hours Per Day (ICD-10-PCS; 2020-07-10)
PROC: 5A1D70Z Performance of Urinary Filtration, Intermittent, Less than 6 Hours Per Day (ICD-10-PCS; 2020-07-11)
PROC: 5A1D70Z Performance of Urinary Filtration, Intermittent, Less than 6 Hours Per Day (ICD-10-PCS; 2020-07-13)
PROC: 02PYX3Z Removal of Infusion Device from Great Vessel, External Approach (ICD-10-PCS; 2020-07-14)
PROC: 02HV33Z Insertion of Infusion Device into Superior Vena Cava, Percutaneous Approach (ICD-10-PCS; 2020-07-14)
PROC: 0JH63XZ Insertion of Tunneled Vascular Access Device into Chest Subcutaneous Tissue and Fascia, Percutaneous Approach (ICD-10-PCS; 2020-07-14)
PROC: B5181ZA Fluoroscopy of Superior Vena Cava using Low Osmolar Contrast, Guidance (ICD-10-PCS; 2020-07-14)
DX: T80.211A Bloodstream infection due to central venous catheter, initial encounter (principal); U07.1 COVID-19; N18.6 End stage renal disease; J12.89 Other viral pneumonia; A41.9 Sepsis, unspecified organism; I12.0 Hypertensive chronic kidney disease with stage 5 chronic kidney disease or end stage renal disease; E87.1 Hypo-osmolality and hyponatremia; E87.5 Hyperkalemia; E11.22 Type 2 diabetes mellitus with diabetic chronic kidney disease; Y84.8 Other medical procedures as the cause of abnormal reaction of the patient, or of later complication, without mention of misadventure at the time of the procedure; D63.1 Anemia in chronic kidney disease; E11.51 Type 2 diabetes mellitus with diabetic peripheral angiopathy without gangrene; E78.5 Hyperlipidemia, unspecified; Z83.3 Family history of diabetes mellitus; Z99.2 Dependence on renal dialysis; Z89.511 Acquired absence of right leg below knee; Z91.19 Patient's noncompliance with other medical treatment and regimen; Z89.422 Acquired absence of other left toe(s)
CPT/HCPCS: 36415; 36556; 36589; 71045; 77001; 77002; 80048; 80053; 80074; 80202; 81001; 82040; 82550; 82948; 83605; 83735; 84100; 84484; 85025; 85027; 85610; 85730; 86701; 86706; 86900; 86901; 87040; 87070; 87076; 87077; 87088; 87186; 87390; 87426; 90935; 93005; 93306; 93356; C1750; C1752; C1769; G0378; J0330; J0690; J0696; J1100; J1644; J1815; J2001; J2250; J2405; J2543; J2704; J2710; J3010; J3370; J3490; J7030; J7040; Q0163; Q9967; U0003